=== PATIENT | male | born 1995 | race Caucasian/White ===

== ENCOUNTER 2018-06-13 12:12 | Emergency (ER) | payer BC ==
[2018-06-13] MEDS ORDERED: Sodium Chloride 0.9% 10 ML Syringe FLUSH PRN (12:37)
[2018-06-13] MEDS ORDERED: Sodium Chloride 0.9% 2.5 ML Syringe FLUSH PRN (12:37)
--- NOTE | 2018-06-13 12:57 | EDM.PDOC ---
ED HPI GENERAL MEDICAL PROBLEM - General Chief Complaint: Abdominal Pain Stated Complaint: ABDOMINAL PAIN Time Seen by Provider: 06/13/18 12:55 Source of Information: Reports: Patient History Limitations: Reports: No Limitations - History of Present Illness INITIAL COMMENTS - FREE TEXT/NARRATIVE: HISTORY AND PHYSICAL: History of present illness: Patient is a 23-year-old male here with complaint of abdominal pain. He states it started this morning around 6 AM, pain comes and goes and he rates it as a 10 /10. Pain is more in the lower abdomen on both sides but does not localize. He denies fevers, chills, nausea, vomiting, diarrhea, hematuria, dysuria, chest pain, shortness of breath, cough. He denies any previous surgeries or significant past medical history. He reports occasional alcohol use but denies daily drinking. Bowel movement yesterday, not passing gas today. Review of systems: As per history of present illness and below otherwise all systems reviewed and negative. Past medical history: As per history of present illness and as reviewed below otherwise noncontributory. Surgical history: As per history of present illness and as reviewed below otherwise noncontributory. Social history: No reported history of drug or alcohol abuse. Family history: As per history of present illness and as reviewed below otherwise noncontributory. Physical exam: General: Patient sitting comfortably in no acute distress and nontoxic appearing HEENT: Atraumatic, normocephalic, pupils reactive, negative for conjunctival pallor or scleral icterus, mucous membranes moist, throat clear, neck supple, nontender, trachea midline. No meningeal signs. Lungs: Clear to auscultation, breath sounds equal bilaterally, chest nontender. Heart: S1S2, regular, negative for clicks, rubs, or overt murmur. Abdomen: Mild right lower abdominal tenderness to palpation. No rigidity, rebound, or guarding. Soft, nondistended. Negative for masses or hepatosplenomegaly. Negative for costovertebral tenderness. Pelvis: Stable nontender. Genitourinary: Deferred. Rectal: Deferred. Extremities: Atraumatic, negative for cords or calf pain. Neurovascular unremarkable. Neuro: Awake, alert, oriented. Cranial nerves II through XII unremarkable. Cerebellum unremarkable. Motor and sensory unremarkable throughout. Exam nonfocal. Notes: CT shows dilated loop of stool filled intestine which appears to be potentially twisted around itself and the right pelvis. A repeat CT scan with oral and rectal contrast is recommended. This may represent the terminal ileum with fecalization. 1600: Discussed with Dr. Storey, he will consult patient in the ED. Diagnostics: CBC, CMP, lipase, UA Therapeutics: 30mg Toradol IV Prescriptions: None Impression: Abdominal pain Plan: 1. Liquid diet today and advance as instructed 2. Follow up with Dr. Storey in his clinic in 1-2 weeks. Please call to schedule an appointment 3. Return to ED as needed as discussed Definitive disposition and diagnosis as appropriate pending reevaluation and review of above. mid abd pain Pain Score (Numeric/FACES): 5 - Related Data Allergies Allergy/AdvReac Type Severity Reaction Status Date / Time No Known Allergies Allergy Verified 06/13/18 12:28 Home Meds: Home Meds . [No Known Home Meds] 06/13/18 [History] Past Medical History - Past Health History Medical/Surgical History: Denies Medical/Surgical History - Infectious Disease History Infectious Disease History: Reports: Chicken Pox Social & Family History - Family History Family Medical History: Noncontributory - Tobacco Use Smoking Status *Q: Never Smoker - Caffeine Use Caffeine Use: Reports: Energy Drinks, Soda - Recreational Drug Use Recreational Drug Use: No ED ROS GENERAL - Review of Systems Review Of Systems: ROS reveals no pertinent complaints other than HPI. ED EXAM, GI/ABD - Physical Exam Exam: See Below (See dictation) Course - Vital Signs Last Recorded V/S: Last Vital Signs Temp 98.0 F 06/13/18 12:28 Pulse 75 06/13/18 16:15 Resp 18 06/13/18 12:28 BP 124/76 06/13/18 16:15 Pulse Ox 99 06/13/18 16:15 - Orders/Labs/Meds Orders: Active Orders 24 hr Category Date Time Status Sodium Chloride 0.9% [Saline Flush] Med 06/13/18 12:37 Active 10 ml FLUSH ASDIRECTED PRN Sodium Chloride 0.9% [Saline Flush] Med 06/13/18 12:37 Active 2.5 ml FLUSH ASDIRECTED PRN Saline Lock Insert [OM.PC] Stat Oth 06/13/18 12:37 Ordered Medication Orders Sodium Chloride (Saline Flush) 10 ml FLUSH ASDIRECTED PRN PRN Reason: Keep Vein Open Sodium Chloride (Saline Flush) 2.5 ml FLUSH ASDIRECTED PRN PRN Reason: Keep Vein Open Labs: Laboratory Tests 06/13/18 06/13/18 06/13/18 Range/Units 13:00 13:00 13:34 WBC 9.47 (4.0-11.0) K/uL RBC 5.24 (4.50-5.90) M/uL Hgb 15.7 (13.0-17.0) g/dL Hct 45.0 (38.0-50.0) % MCV 85.9 (80.0-98.0) fL MCH 30.0 (27.0-32.0) pg MCHC 34.9 (31.0-37.0) g/dL RDW Std Deviation 40.2 (28.0-62.0) fl RDW Coeff of Vince 13 (11.0-15.0) % Plt Count 216 (150-400) K/uL MPV 10.30 (7.40-12.00) fL Neut % (Auto) 84.9 H (48.0-80.0) % Lymph % (Auto) 10.5 L (16.0-40.0) % Logan % (Auto) 4.3 (0.0-15.0) % Eos % (Auto) 0.1 (0.0-7.0) % Baso % (Auto) 0.2 (0.0-1.5) % Neut # (Auto) 8.0 H (1.4-5.7) K/uL Lymph # (Auto) 1.0 (0.6-2.4) K/uL Logan # (Auto) 0.4 (0.0-0.8) K/uL Eos # (Auto) 0.0 (0.0-0.7) K/uL Baso # (Auto) 0.0 (0.0-0.1) K/uL Nucleated RBC % 0.0 /100WBC Nucleated RBCs # 0 K/uL Sodium 137 (136-148) mmol/L Potassium 4.1 (3.5-5.1) mmol/L Chloride 101 (98-107) mmol/L Carbon Dioxide 23.9 (21.0-32.0) mmol/L BUN 16 (7.0-18.0) mg/dL Creatinine 0.7 L (0.8-1.3) mg/dL Est Cr Clr Drug Dosing 172.26 mL/min Estimated GFR (MDRD) > 60.0 ml/min Glucose 95 (74-106) mg/dL Calcium 9.3 (8.5-10.1) mg/dL Total Bilirubin 2.8 H (0.2-1.0) mg/dL AST 33 (15-37) IU/L ALT 30 (14-63) IU/L Alkaline Phosphatase 59 (46-116) U/L Total Protein 7.5 (6.4-8.2) g/dL Albumin 4.5 (3.4-5.0) g/dL Globulin 3.0 (2.6-4.0) g/dL Albumin/Globulin Ratio 1.5 (0.9-1.6) Lipase 75 (73-393) U/L Urine Color YELLOW Urine Appearance CLEAR Urine pH 6.5 (5.0-8.0) Ur Specific [place] 1.015 (1.001-1.035) Urine Protein NEGATIVE (NEGATIVE) mg/dL Urine Glucose (UA) NEGATIVE (NEGATIVE) mg/dL Urine Ketones >=80 (NEGATIVE) mg/dL Urine Occult Blood MODERATE H (NEGATIVE) Urine Nitrite NEGATIVE (NEGATIVE) Urine Bilirubin NEGATIVE (NEGATIVE) Urine Urobilinogen 0.2 (<2.0) EU/dL Ur Leukocyte Esterase NEGATIVE (NEGATIVE) Urine RBC 6-8 (0-2/HPF) Urine WBC 0-2 (0-5/HPF) Ur Epithelial Cells FEW (NONE-FEW) Urine Bacteria FEW (NEGATIVE) Meds: Medications Generic Name Dose Route Start Last Admin Trade Name Freq PRN Reason Stop Dose Admin Sodium Chloride 10 ml 06/13/18 12:37 Saline Flush FLUSH ASDIRECTED PRN Keep Vein Open Sodium Chloride 2.5 ml 06/13/18 12:37 Saline Flush FLUSH ASDIRECTED PRN Keep Vein Open Discontinued Medications Generic Name Dose Route Start Last Admin Trade Name Freq PRN Reason Stop Dose Admin Ketorolac Tromethamine 30 mg 06/13/18 14:30 06/13/18 14:47 Toradol IVPUSH 06/13/18 14:31 30 mg ONETIME ONE Administration Departure - Departure Time of Disposition: 16:51 Disposition: Home, Self-Care 01 Condition: Good Clinical Impression: Abdominal pain - Discharge Information Referrals: PCP,None [Primary Care Provider] - Forms: ED Department Discharge Additional Instructions: The following information is given to patients seen in the emergency department who are being discharged to home. This information is to outline your options for follow-up care. We provide all patients seen in our emergency department with a follow-up referral. The need for follow-up, as well as the timing and circumstances, are variable depending upon the specifics of your emergency department visit. If you don't have a primary care physician on staff, we will provide you with a referral. We always advise you to contact your personal physician following an emergency department visit to inform them of the circumstance of the visit and for follow-up with them and/or the need for any referrals to a consulting specialist. The emergency department will also refer you to a specialist when appropriate. This referral assures that you have the opportunity for follow-up care with a specialist. All of these measure are taken in an effort to provide you with optimal care, which includes your follow-up. Under all circumstances we always encourage you to contact your private physician who remains a resource for coordinating your care. When calling for follow-up care, please make the office aware that this follow-up is from your recent emergency room visit. If for any reason you are refused follow-up, please contact the [facility] Emergency Department at and asked to speak to the emergency department charge nurse. [facility] Specialty Care - General Surgery Professional Building [address] [place] [address], [address] [place] [address] 1. Liquid diet today and advance as instructed 2. Follow up with Dr. Storey in his clinic in 1-2 weeks. Please call to schedule an appointment 3. Return to ED as needed as discussed - My Orders Last 24 Hours: My Active Orders 06/13/18 12:37 Sodium Chloride 0.9% [Saline Flush] 10 ml FLUSH ASDIRECTED PRN Sodium Chloride 0.9% [Saline Flush] 2.5 ml FLUSH ASDIRECTED PRN Saline Lock Insert [OM.PC] Stat - Assessment/Plan Last 24 Hours: My Active Orders 06/13/18 12:37 Sodium Chloride 0.9% [Saline Flush] 10 ml FLUSH ASDIRECTED PRN Sodium Chloride 0.9% [Saline Flush] 2.5 ml FLUSH ASDIRECTED PRN Saline Lock Insert [OM.PC] Stat
[2018-06-13 14:00] LABS: CHLORIDE,CL 101 mmol/L (98-107); SODIUM,NA 137 mmol/L (136-148)
[2018-06-13] MEDS ORDERED: Ketorolac 30 MG/ML SDV IVPUSH ONE (14:30)
--- NOTE | 2018-06-13 15:47 | CT ---
Indication: Low abdominal pain. Technique: Multiple contiguous axial images were obtained from the lung bases through the symphysis pubis without intravenous contrast enhancement. Please note that all CT scans at this facility use dose modulation, iterative reconstruction, and/or weight-based dosing when appropriate to reduce radiation dose to as low as reasonably achievable. Comparison: None Findings: The lung bases are clear. The heart is normal in size. No pericardial effusion is identified. The unenhanced liver, gallbladder, spleen, pancreas, adrenals, and kidneys are normal. No intrahepatic biliary ductal dilatation is identified. No hydronephrosis is identified. In the pelvis, the urinary bladder is grossly normal. The prostate gland is grossly normal. Minimal amount of free fluid is identified within the pelvis. No free air seen. The small bowel is normal in caliber. There is dilatation and significant fecal material identified within a loop of bowel in the right hemipelvis. It is difficult to tell of this is the cecum or the terminal ileum with fecalization. The loop of bowel almost appears on most of a twisted upon itself appearance into the pelvis. Consideration should be given to repeat CT scan with both oral and rectal contrast. No free air is identified within the abdomen or pelvis. The aorta is normal in caliber. No lytic or blastic lesions of the spine are seen. Impression: Dilated loop of stool filled intestine which appears to be potentially twisted around itself and the right pelvis. A repeat CT scan with oral and rectal contrast is recommended. This may represent the terminal ileum with fecalization. Small amount of free fluid identified within the pelvis. These findings were discussed with Venus Galvin at the time of this dictation. Please note that all CT scans at this facility use dose modulation, iterative reconstruction, and/or weight-based dosing when appropriate to reduce radiation dose to as low as reasonably achievable. Dictated by Shyann Gutierrez MD @ Jun 13 2018 3:29PM Signed by Dr. Shyann Gutierrez @ Jun 13 2018 3:46PM
--- NOTE | 2018-06-15 09:30 | CONS ---
DATE OF CONSULTATION: 06/13/2018 DATE OF : 1995 PRIMARY CARE PHYSICIAN: None PCP CONCERNING QUESTION: Abnormal CT scan. HISTORY OF PRESENT ILLNESS: The patient is a 23-year-old small framed and regular built gentleman, complaining of 4-hour history of acute onset of diffuse abdominal pain. The pain intensified, so he come into emergency room. Denied nausea, vomiting, and regular bowel movement was the same day. Workup in the emergency room, CAT scan shows possible twisting of the rectum to himself and Surgery was consulted. The patient remarked that the pain was very bad and is about 10/10 pain scale, but never had bright red blood per rectum, never nauseated, and denied prior episode. PAST MEDICAL HISTORY: Significant for no diabetes, [place], CVA, or hypertension. PAST SURGICAL HISTORY: No abdominal surgery. ALLERGY: Please refer to nursing for details. MEDICATIONS: Please refer to nursing for details. FAMILY HISTORY: Noncontributory. PHYSICAL EXAMINATION: GENERAL: A very pleasant nice gentleman, pacing in the room and asking to go home. HEENT: Normocephalic and atraumatic. Sclerae anicteric. LUNGS: Clear to auscultation. HEART: Regular rate and rhythm. ABDOMEN: Soft, nondistended no pulsating tender midline abdominal structure. No surgical scar. Nontender abdomen. Regular bowel sounds. Asked the patient to jump in front of me, the patient jumped and no pain. DIAGNOSTIC DATA: White count normal. CAT scan as alluded above. IMPRESSION/PLAN: A large amount of stool in abdomen, probably causing his discomfort. We will advise full liquid diet for today and tomorrow, and if situation recurs, he will return to the emergency room. Otherwise, follow up with me in 1-2 weeks or on an as needed basis. DIAGNOSIS: Abdominal pain, resolved. As always, thank you for the kind referral. BENJAMIN / TAI /[id number]
== END 2018-06-13 17:06 | disposition home or self-care (01) ==
LOC: MW.ED 12:12
DX: R10.31 Right lower quadrant pain (principal)
CPT/HCPCS: 36415; 74176; 80053; 81001; 83690; 85025; 96374; 99284; J1885

== ENCOUNTER 2024-08-01 03:10 | Emergency (ER) | payer SELFPAY ==
[2024-08-01 03:47] LABS: BASOPHILS ABSOLUTE AUTO 0.08 K/uL (0.00-0.20); BASOPHILS PERCENT AUTO 1.2 % (0.0-1.0); EOSINOPHILS ABSOLUTE AUTO 0.24 K/uL (0.00-0.45); EOSINOPHILS PERCENT AUTO 3.6 % (0.0-6.0); HEMATOCRIT 48.1 % (42.0-52.0); HEMOGLOBIN 16.3 g/dL (14.0-18.0); IMMATURE GRAN ABSOLUTE AUTO 0.02 K/uL (0.00-0.05); IMMATURE GRAN PERCENT AUTO 0.3 % (0.0-0.4); LYMPHOCYTES PERCENT AUTO 32.8 % (24.0-44.0); MEAN CORPUSCULAR HEMOGLOBIN 30.4 pg (28.0-32.0); MEAN CORPUSCULAR HGB CONC 33.9 g/dL (32.0-36.0); MEAN CORPUSCULAR VOLUME 89.7 fL (83.0-99.0); MEAN PLATELET VOLUME 9.1 fL (9.4-12.4); MONOCYTES ABSOLUTE AUTO 0.39 K/uL (0.00-0.80); MONOCYTES PERCENT AUTO 5.8 % (0.0-8.0); NEUTROPHILS ABSOLUTE AUTO 3.77 K/uL (1.80-7.70); NEUTROPHILS PERCENT AUTO 56.3 % (41.0-71.0); PLATELET COUNT,PLT 321 K/uL (150-400); RED BLOOD CELL COUNT 5.36 M/uL (4.52-5.90)
[2024-08-01] MEDS ORDERED: droPERidol 2.5 MG/ML SDV IM PRN (03:54)
[2024-08-01 04:25] LABS: A/G RATIO 1.5 (0.9-1.6); ACETAMINOPHEN <2.0 ug/mL; ALANINE AMINOTRANSFERASE,ALT 37 IU/L (14-63); ALBUMIN 4.8 g/dL (3.4-5.0); ALKALINE PHOSPHATASE 70 U/L (46-116); ASPARTATE AMNIOTRANSFERASE,AST 28 IU/L (15-37); BLOOD UREA NITROGEN,BUN 10 mg/dL (7.0-18.0); CALCIUM 8.4 mg/dL (8.5-10.1); CARBON DIOXIDE,CO2 30.1 mmol/L (21.0-32.0); CHLORIDE,CL 107 mmol/L (98-107); CREATININE 0.9 mg/dL (0.8-1.3); EST CRCL DRUG DOSING (CG) 131.73 mL/min; ESTIMATED GFR 118 mL/min (>60); ETHANOL BLOOD MEDICAL 409 mg/dL; GLUCOSE RANDOM 118 mg/dL (74-106); MAGNESIUM 2.5 mg/dL (1.8-2.4); POTASSIUM,K 4.7 mmol/L (3.5-5.1); PROTEIN TOTAL,TP 8.1 g/dL (6.4-8.2); SALICYLATE <0.2 mg/dL (0.0-20.0); SODIUM,NA 146 mmol/L (136-148); TSH ULTRASENSITIVE 1.88 uIU/mL (0.36-3.74)
== END 2024-08-01 10:59 | disposition home or self-care (01) ==
LOC: MW.ED 03:10
DX: F10.920 Alcohol use, unspecified with intoxication, uncomplicated (principal); R45.851 Suicidal ideations; Z91.85 Personal history of military service
CPT/HCPCS: 36415; 80053; 80143; 80179; 80307; 83735; 84443; 85025; 99283; 99285